=== PATIENT | male | born 1985 | race Caucasian/White ===

== ENCOUNTER 2022-01-14 01:39 | Emergency (ER) | payer OTHER ==
[2022-01-14] MEDS ORDERED: DOXYCYCLINE HY100 MG PO (02:10)
== END 2022-01-14 02:30 | disposition home or self-care (01) ==
LOC: FER 01:39
DX: L02.11 Cutaneous abscess of neck (principal); L02.12 Furuncle of neck; F17.200 Nicotine dependence, unspecified, uncomplicated
CPT/HCPCS: 99283; J1885